=== PATIENT | male | born 1960 | race Caucasian/White ===

== ENCOUNTER 2016-05-16 11:23 | Inpatient (IN) | payer OTHER, BC ==
[~2016-05-16] VITALS: Ht 177.8 cm; Wt 125.9 kg
[2016-05-16] MEDS ORDERED: PROMETHAZINE HCL INJ 12.5 MG in SODIUM CHLORIDE 0.9% 50ML 50 ML IV PRN (12:30)
[2016-05-16] MEDS ORDERED: ACETAMINOPHEN 325 MG TAB PO PRN (12:30)
[2016-05-16] MEDS ORDERED: ONDANSETRON INJ 2 MG/ML 2 ML VIAL IV PRN (12:30)
[2016-05-16] MEDS ORDERED: LORAZEPAM INJ 1 MG in SYRINGE 0 ML IV PRN (12:30)
[2016-05-16] MEDS ORDERED: LORAZEPAM 1 MG TAB PO PRN (12:30)
[2016-05-16 12:44] VITALS: BP 168/95; PULSE 90; TEMP 36.7; Ht 177.8 cm; Wt 125.9 kg
--- NOTE | 2016-05-16 13:05 | HISTORY & PHYSICAL EXAMINATION ---
DATE OF ADMISSION: 05/16/2016 CHIEF COMPLAINT: Neck pain and left shoulder pain. SUBJECTIVE EXAMINATION: Rojelio is a 55-year-old who presented to our office for evaluation of his neck pain and left shoulder pain that began last September when he had a traumatic injury at work where he was struck by a piece of machinery and at that point, he had had neck pain. He has been evaluated and treated conservatively with prednisone and physical therapy with no relief. He has been seen and evaluated. MRI was obtained. He denies any true radicular pain down his arms, numbness or tingling or weakness of his upper extremities. Pain in his scapular region and shoulder region are his major complaints. He has no difficulty walking. No loss of balance, referred to us for an evaluation. PAST SURGICAL HISTORY: None reported. FAMILY HISTORY: Cancer. SURGICAL HISTORY: None reported. SOCIAL HISTORY: He is employed and . Former alcohol user. Former tobacco user and nondrug user. 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 CURRENT MEDICATIONS: None. ALLERGIES: TO VICODIN. REVIEW OF SYSTEMS: The patient denies any chills, fatigue, fever, night sweats or weakness. He denies any chest pain, heart murmur, irregular heartbeat or fainting. He denies any coughing, shortness of breath, recent infections or wheezing. He denies any abdominal pain, heartburn, nausea or vomiting. OBJECTIVE EXAMINATION: GENERAL APPEARANCE: A 55-year-old, alert and oriented, in no distress. CUTANEOUS CERVICAL: No dimplings, retractions, deformities, scarrings, or markings. CERVICAL EXAMINATION: The patient has painful range of motion of his neck with flexion and extension. He has had difficulty with shoulder elevations. No weakness with biceps flexion, triceps extension, wrist flexion and extension, finger abduction and ulnar deviation. Reflexes are +2 bilaterally symmetric. Sensation is intact to all dermatomal patterns. DIAGNOSTIC STUDIES: MRI demonstrates a large C6-C7 disc herniation with spinal cord compression. IMPRESSION: Cervical disc herniation. PLAN OF CARE: After discussion with the patient due to the level of spinal cord compromise, I have elected to admit this patient and place him on bed rest. I am going to discuss this patient with Dr. Vyas. The potential treatment options to include an ACDF at C6-C7. This procedure was reviewed with the patient in detail to include risks, benefits and outcomes. He conveyed an understanding to this and further treatment plans will be decided upon during his admission.
[2016-05-16 13:15] VITALS: O2SAT 97
[2016-05-16 13:17] LABS: BASO % 0.3 %; BASO ABS # 0.02 K/uL (0-0.2); COMPLETE YES; EOS % 1.5 %; HEMATOCRIT 39.2 % (42-52); IG% 0.1 %; LYMPH % 26.2 %; LYMPH ABS # 1.88 K/uL (1.2-3.4); MEAN CELL VOLUME 86.2 fL (80-100); MEAN CORPUSCULAR HEMOGLOBIN 32.1 pg (25-34); MEAN CORPUSCULAR HGB CONC 37.2 g/dl (32-36); MONO % 5.7 %; NEUT % 66.2 %; PLATELET COUNT 189 K/uL (130-400); RED BLOOD COUNT 4.55 M/uL (4.7-6.1); WHITE BLOOD COUNT 7.18 K/uL (4.8-10.8)
[2016-05-16 13:50] LABS: BUN/CREATININE RATIO 12.3 (10-20); CALCIUM 9.2 mg/dl (8.5-10.1); CREATININE 1.2 mg/dl (0.60-1.40); POTASSIUM 3.9 mmol/L (3.5-5.1)
--- NOTE | 2016-05-16 13:59 | DIAGNOSTIC IMAGING REPORT ---
CHEST 2 VIEWS ROUTINE CLINICAL HISTORY: Preoperative chest COMPARISON STUDY: No previous studies for comparison. FINDINGS: The heart is at the upper limits of normal in size. There is no failure. There is no focal pulmonary consolidation. There are no pleural effusions.[ IMPRESSION: No active disease in the chest. Electronically signed by: Flash Antunez M.D. 05/16/2016 1:57 PM Dictated Date/Time: 05/16/2016 1:56 PM
[2016-05-16] MEDS: OXYCODONE/ACETAMINOPHEN 5-325 TAB PO PRN ×2 (14:20→21:39)
[2016-05-16] MEDS: DEXAMETHASONE INJ 8 MG in SYRINGE 0 ML IV SCH ×2 (14:32→21:39)
[2016-05-16 14:38] LABS: URINE APPEARANCE CLEAR (CLEAR); URINE BILIRUBIN NEG (NEG); URINE COLOR YELLOW; URINE EPITHELIAL CELL AUTO 0-5 /lpf (0-5); URINE NITRITE NEG (NEG); URINE SPECIFIC GRAVITY 1.006 (1.000-1.030); UROBILINOGEN NEG (NEG)
[2016-05-16 14:43] LABS: MANUAL MICROSCOPIC REQUIRED? NO; REVIEW REQ? NO
[2016-05-16] MEDS ORDERED: IV FLUIDS COMPLETED PRN (15:15)
--- NOTE | 2016-05-16 18:56 | Progress Note ---
Progress Note 55 year old M with cord compression seen on MRI scheduled for C6/7 ACDF with spinal cord monitoring. Patient has been treated conservatively with steroids for several months. Aside from obesity, previous smoking, and probable MIKE, he has no known medical history. He has been hypertensive during this visit, but the patient said his BP usually is much lower and has been running higher since his treatment with steroids. Airway exam reveals a thick neck and slightly limited extension but is not presumed to be difficult to intubate. Remainder of cardiopulmonary exam is unremarkable. Labs and studies were reviewed and are acceptable to proceed with surgery as planned. Plan for General Anesthesia with ETT. Risks and benefits were discussed with patient and all questions were answered. He consents to the proposed anesthetic plan.
[2016-05-16 23:20] VITALS: BP 127/80; PULSE 91; TEMP 36.5; O2SAT 96
[2016-05-17] VITALS (15 sets, daily range): BP systolic 131–179; BP diastolic 78–102; PULSE 74–103; TEMP 36.5–37.2; O2SAT 94–97
[2016-05-17] MEDS: DEXAMETHASONE INJ 8 MG in SYRINGE 0 ML IV SCH (05:46)
[2016-05-17] MEDS ORDERED: CEFAZOLIN 3000 MG/65 ML D5W IV SCH (06:00)
[2016-05-17] MEDS ORDERED: REMIFENTANIL 1 MG VIAL IV ONE ×3 (06:51→08:55)
[2016-05-17] MEDS ORDERED: PROPOFOL IV EMULSION 10 MG/ML 100 ML VIAL IV ONE ×2 (06:51→08:55)
[2016-05-17] MEDS ORDERED: DEXAMETHASONE SOD INJ 4 MG/ML VIAL ONE (07:22)
[2016-05-17] MEDS ORDERED: SUCCINYLCHOLINE CHLORIDE 20 MG/ML 10 ML VIAL IV ONE (07:22)
[2016-05-17] MEDS ORDERED: ROCURONIUM BROMIDE 10 MG/ML 5 ML VIAL ONE (07:22)
[2016-05-17] MEDS ORDERED: PROPOFOL IV EMULSION 10 MG/ML 20 ML VIAL IV ONE (07:22)
[2016-05-17] MEDS ORDERED: MIDAZOLAM HCL 1 MG/ML 2ML VIAL ONE (07:23)
[2016-05-17] MEDS ORDERED: FENTANYL CITRATE INJ 50 MCG/1 ML 2 ML VIAL ONE ×2 (07:23→08:17)
[2016-05-17] MEDS ORDERED: LACTATED RINGER'S 1000ML 1,000 ML IV PRN (07:29)
[2016-05-17] MEDS ORDERED: MoRPHine SULFATE 10 MG/ML CARP/VIAL IV PRN (07:30)
[2016-05-17] MEDS ORDERED: DiphenhydrAMINE HCL 50 MG/ML VIAL IV PRN (07:30)
[2016-05-17] MEDS ORDERED: ONDANSETRON INJ 2 MG/ML 2 ML VIAL IV PRN ×2 (07:30→09:30)
[2016-05-17] MEDS ORDERED: METOCLOPRAMIDE HCL INJ 5 MG/ML 2 ML VIAL IV PRN (07:30)
[2016-05-17] MEDS ORDERED: NURSING VERBAL MED ORDER ONE ×3 (07:30→12:45)
--- NOTE | 2016-05-17 07:37 | History & Physical Bridge Note ---
H&P Re-Evaluation Bridge Note: I have examined the patient, reviewed the History & Physical and in the interval since the performance of the History & Physical I have noted the following changes of clinical significance: No changes noted
[2016-05-17] MEDS ORDERED: ONDANSETRON INJ 2 MG/ML 2 ML VIAL ONE (08:46)
[2016-05-17] MEDS ORDERED: LARYING-O-JET KIT (LTA) EXT ONE ×2 (08:46)
[2016-05-17] MEDS ORDERED: BACITRACIN 50000 UNIT VIAL IR ONE (09:25)
[2016-05-17] MEDS ORDERED: FLOSEAL HEMOSTATIC MATRIX 5ML TOP ONE (09:25)
--- NOTE | 2016-05-17 09:26 | [facility] Post Operative Brief Note ---
Immediate Operative Summary Operative Date May 17, 2016. Pre-Operative Diagnosis Cervical disc herniation Post-Operative Diagnosis Same as preoperative diagnosis Procedure(s) Performed C6-C7 Anterior Cervical Fusion * Spinal cord monitoring * Surgeon Dr. Jl Vyas Job Training Supervisor Surgeon(s) Phillip Avendano PA-C Estimated Blood Loss 30cc Findings dict Specimens No pathology specimens per surgeon
[2016-05-17] MEDS ORDERED: THROMBIN 5000 UNITS KIT TOP ONE (09:27)
[2016-05-17] MEDS ORDERED: ACETAMINOPHEN IV 100 ML IV PRN (09:30)
[2016-05-17] MEDS ORDERED: NALOXONE HCL 0.4 MG/1 ML VIAL/CARP IV PRN (09:30)
[2016-05-17] MEDS ORDERED: LORAZEPAM 0.5 MG TAB PO PRN (09:30)
[2016-05-17] MEDS ORDERED: DEXAMETHASONE INJ 8 MG in SYRINGE 0 ML IV PRN (09:30)
[2016-05-17] MEDS ORDERED: LORAZEPAM INJ 0.5 MG in SYRINGE 0.75 ML IV PRN (09:30)
[2016-05-17] MEDS ORDERED: OXYCODONE HCL IR 5 MG TAB (IMMEDIATE RELEASE) PO PRN (09:30)
[2016-05-17] MEDS ORDERED: RACEPINEPHRINE 2.25% NEBU SOLN 0.5 ML VIAL INH PRN (09:30)
[2016-05-17] MEDS ORDERED: OXYC-57 PO (09:39)
--- NOTE | 2016-05-17 09:40 | Discharge Instructions ---
Discharge Instructions Admission Reason for Admission: Cervical Myelopathy Discharge Discharge Diagnosis / Problem: cervical disc herniation Discharge Goals Goal(s): Decrease discomfort, Improve function, Increase independence Activity Recommendations Activity Limitations: as noted below Lifting Limitations: no more than 5 pounds Exercise/Sports Limitations: none May Resume Sexual Activity: after follow-up appointment Shower/Bathe: may shower/bathe in 3 days . Instructions / Follow-Up Instructions / Follow-Up ACTIVITY RECOMMENDATIONS: SELF CARE INSTRUCTIONS AFTER CERVICAL FUSIONS 1. No smoking. Smoking drastically decreases the chance of a solid fusion. 2. No bending, lifting more than 5 pounds, or twisting (roll like a log when turning in bed). 3. You may shower 3 days after surgery. Thoroughly dry wound. Do not soak in the tub. 4. Cervical collar: Must be worn at all times including sleeping. You may remove the brace only to bath, eat and if you are sitting in a recliner. 5. Please walk as much as you can for exercise. Gradually increase the distance that you walk as your endurance increases. SPECIAL CARE INSTRUCTIONS: VERY IMPORTANT TO READ AND REVIEW A. Do not take any anti-inflammatory medications (i.e. Indocin, Advil, Aspirin, Naprosyn, Aleve, Motrin, etc.) as these may inhibit the chance of a solid fusion. Tylenol is okay to take. B. Your surgical incision has been closed with a cosmetic suture under the skin that will dissolve in about 6 weeks. In 14 days, you can use a pair of clean scissors and cut the suture that is left outside of the skin at the ends of your incision. C. Complications are uncommon, but please contact us if you have any signs or symptoms of: 1. wound infection (fever higher than 102.5 degrees F, redness, separation of wound, drainage, or increasing pain from the incision) 2. blood clots in legs (pain, swelling, redness and warmth in legs) 3. urinary tract infection (fever higher than 102.5 degrees, burning upon urination or increased frequency of urination) 4. nerve problems (inability to walk on your toes or heels, numbness, loss of bowel or bladder control) 5. any other symptoms that concern you. D. Please call the office at if you have any concerns or questions about your operation or recovery. MANAGING PAIN AFTER SPINAL SURGERY 1. Narcotic medication is intended for short-term use and will be provided for surgical pain. Surgical pain usually lasts for a period of 4-6 weeks. Narcotic medication includes Percocet, Vicodin, Darvocet, Tylenol #3 or Lortab. 2. Longer-term pain is more appropriately treated with non-narcotic medication such as Tylenol ES. 3. Muscle spasm is not appropriately treated with narcotics. Muscle relaxers such as Soma, Flexeril or Skelaxin can be used along with Tylenol ES. 4. Remember that we all live with some "aches and pains". This is not unusual or uncommon after an injury or as we get older. 5. We will provide appropriate medication within the normal guidelines of their prescribed use. We will also be very cautious and aware of potential abuse and extended duration of patients' medication needs. 6. Please allow 2-3 days to process refills. Prescriptions will not be mailed but must be picked up at the office. FOLLOW UP VISIT: Keep your scheduled follow-up appointment. Any questions, please call the office at . Current Hospital Diet Patient's current hospital diet: Clear Liquid Diet Discharge Diet Recommended Diet: Regular Diet Procedures Procedures Performed: C6-C7 Anterior Cervical Fusion * Spinal cord monitoring * Pending Studies Studies pending at discharge: no Medical Emergencies . Who to Call and When: Medical Emergencies: If at any time you feel your situation is an emergency, please call 911 immediately. . Non-Emergent Contact Non-Emergency issues call your: Surgeon Call Non-Emergent contact if: temperature is above 101, your pain is not controlled, your pain is worsening, your pain is unusual for you, your pain is concerning you, wound has increased drainage, wound has increased redness, wound has increased pain, you have any medication questions . "Provider Documentation" section prepared by Phillip Avendano. VTE Core Measure Inpt VTE Proph given/why not?: Laila Londono
--- NOTE | 2016-05-17 09:55 | DIAGNOSTIC IMAGING REPORT ---
INTRAOPERATIVE CERVICAL SPINE 5 VIEWS CLINICAL HISTORY: Anterior cervical discectomy and fusion, C6-7. COMPARISON STUDY: No previous studies for comparison. FINDINGS: 13 seconds of fluoroscopic time was utilized. 5 fluoroscopic spot images are provided for interpretation. The lateral views are noninterpretable. On the final AP view, there appears to be evidence of a C6-7 cervical discectomy. Incidental note is made of a surgical drain and endotracheal tube. IMPRESSION: Intraoperative radiographs as described above. Electronically signed by: Flash Antunez M.D. 05/17/2016 9:53 AM Dictated Date/Time: 05/17/2016 9:52 AM
[2016-05-17] MEDS ORDERED: SCOPOLAMINE 1.5 MG TDSY TD SCH (10:00)
[2016-05-17] MEDS: FENTANYL CITRATE INJ 50 MCG/1 ML 2 ML VIAL IV PRN ×2 (10:02→10:08)
[2016-05-17] MEDS ORDERED: LABETALOL HCL IV 5 MG/ML 20ML ONE (10:17)
[2016-05-17] MEDS ORDERED: LABETALOL HCL IV 5 MG/ML 20ML IV PRN ×2 (10:45)
--- NOTE | 2016-05-17 11:00 | Anesthesiology Progress Note ---
Anesthesia Post Op Note Date & Time May 17, 2016 at 10:59 Vital Signs Pain Intensity: 4 Vital Signs Past 12 Hours Date Time Temp Pulse Resp B/P Pulse Ox O2 Delivery O2 Flow Rate FiO2 05/17/16 10:43 137/100 05/17/16 10:41 92 15 05/17/16 10:41 91 15 94 05/17/16 10:38 145/103 05/17/16 10:36 89 15 05/17/16 10:36 89 15 94 05/17/16 10:33 157/98 05/17/16 10:31 89 14 05/17/16 10:31 92 14 93 05/17/16 10:30 94 19 05/17/16 10:30 93 19 93 05/17/16 10:28 150/102 05/17/16 10:27 141/105 05/17/16 10:25 94 15 05/17/16 10:25 96 15 93 05/17/16 10:23 134/113 05/17/16 10:20 95 16 98 05/17/16 10:20 91 16 05/17/16 10:19 154/108 05/17/16 10:15 87 15 97 05/17/16 10:15 87 15 05/17/16 10:13 162/109 05/17/16 10:10 87 18 05/17/16 10:10 88 18 97 05/17/16 10:08 167/105 05/17/16 10:05 88 12 96 05/17/16 10:05 88 12 05/17/16 10:04 142/109 05/17/16 10:00 90 16 97 05/17/16 10:00 91 16 05/17/16 09:58 154/102 05/17/16 09:55 97 15 05/17/16 09:55 36.7 96 12 140/106 12 Mask 10 05/17/16 09:55 95 15 140/106 96 05/17/16 06:46 103 136/88 05/17/16 06:13 36.5 100 18 159/101 95 Room Air 05/16/16 23:40 Room Air 05/16/16 23:20 36.5 91 18 127/80 96 Room Air Notes Mental Status: alert / awake / arousable, participated in evaluation Pt Amnestic to Procedure: Yes Nausea / Vomiting: adequately controlled Pain: adequately controlled Airway Patency, RR, SpO2: stable & adequate BP & HR: stable & adequate Hydration State: stable & adequate Anesthetic Complications: no major complications apparent Pt doing well. DBP elevated as it was pre-op but now 140s/90s after labetalol.
[2016-05-17] MEDS ORDERED: SODIUM CHLORIDE 0.9% INJ 10 ML VIAL ONE (11:43)
[2016-05-17] MEDS: SODIUM CHLORIDE 0.9% 1000ML 1,000 ML IV SCH ×2 (11:55→22:33)
[2016-05-17] MEDS: HYDROmorphone INJ 1 MG/ML SYR IV PRN ×4 (12:20→22:42)
--- NOTE | 2016-05-17 13:27 | OPERATIVE REPORT ---
DATE OF OPERATION: 05/17/2016 PREOPERATIVE DIAGNOSES: 1. Cervical disc herniation C6-C7 -- massive. 2. Cervical myelopathy. POSTOPERATIVE DIAGNOSIS: Same. PROCEDURES: 1. Anterior cervical discectomy and fusion and application of PEEK intervertebral spacer with local autograft and DBM putty C6-C7. 2. Anterior cervical instrumentation, C6-C7 with LDR anterior cervical Blade plates. SURGEON: Dr. Vyas. GUEST RELATIONS COORDINATOR: Phillip Avendano PA-C. Please note he participated in all portions of the procedure and was critical for performance of the procedure, participated with positioning, prepping, draping, retraction and wound closure. ANESTHESIA: General endotracheal anesthesia. COMPLICATIONS: None. ESTIMATED BLOOD LOSS: Minimal. IV FLUIDS: Per anesthesia record. OPERATION AND FINDINGS: PROCEDURE: After identification of patient and operative level, he was brought to the OR where he underwent induction of general anesthesia. He was then positioned supine on [facility] OR table with Lamont horseshoe quality control head. Arms tucked at sides and well padded. Shoulders taped distally and anterior neck was sterilely prepped and draped in usual fashion. Antibiotics were administered. Time-out was performed. Level was confirmed and transverse skin incision was made on the right side of the neck at the level of the cricoid cartilage. I divided the platysma in line with the incision and performed routine anterior cervical exposure with blunt dissection medial to the carotid sheath. I identified the presumptive disc spaces, marked it with electrocautery and fluoroscopy and then mobilized the longus colli. I placed self-retaining cervical retractor deep to the longus colli, put [place] pins in the body of C6 and C7 and applied slight distraction across the pins. I then performed a complete discectomy at C6-C7, removed the complete disc, took down the posterior osteophytes of the posterior annulus and the PLL and did foraminotomies as necessary. There was a great deal of extruded disc material posterior to the vertebral body. I removed most of this in 2 large fragments. There appeared to be adequate decompression of the spinal cord return in normal morphology. I did swept proximally and distally behind the body of C6 and C7 with a proton micro ball tipped feeler and no further loose fragments could be identified. I then applied FloSeal for hemostasis and decorticated the endplates with a high speed wayne. I then determined graft size with trial sizers and inserted a PEEK cage filled with local bone and DBM putty. After insertion of the cage I removed the [place] pins, applied bone wax over the holes and inserted anterior cervical Blade plates into the body of C6 and C7 using the LDR system. I then removed the insertion handle, irrigated with bacitracin solution, applied FloSeal and confirmed hemostasis, placed a small round drain and closed in layered fashion. All sponge and needle counts were correct at the end of the case. I attest to the content of the Intraoperative Record and any orders documented therein. Any exceptio ns are noted below.
[2016-05-17] MEDS: CHECK SCOPOLAMINE PATCH PLACEMENT SCH (15:47)
[2016-05-17] MEDS: DEXAMETHASONE INJ 6 MG in SYRINGE 0 ML IV SCH (15:47)
[2016-05-17] MEDS: CEFAZOLIN IV 2,000 MG in DEXTROSE 5% 50ML 50 ML IV SCH (16:10)
[2016-05-18] VITALS (8 sets, daily range): BP systolic 131–153; BP diastolic 79–100; PULSE 76–88; TEMP 36.6–36.9; O2SAT 93–97
[2016-05-18] MEDS: CEFAZOLIN IV 2,000 MG in DEXTROSE 5% 50ML 50 ML IV SCH ×2 (00:27→08:14)
[2016-05-18] MEDS: DEXAMETHASONE INJ 6 MG in SYRINGE 0 ML IV SCH ×2 (00:27→08:14)
[2016-05-18] MEDS: CHECK SCOPOLAMINE PATCH PLACEMENT SCH ×2 (00:28→07:15)
[2016-05-18] MEDS: HYDROmorphone INJ 1 MG/ML SYR IV PRN ×2 (02:53→06:23)
--- NOTE | 2016-05-18 10:01 | Orthopedic Progress Note ---
Orthopedic Progress Note Date of Service May 18, 2016. Subjective Post OP Day: 1 Reports: feeling well, pain controlled w PO medications, Denies: SOB, calf pain , chest pain, complaints, light headedness, nausea / vomiting Additional Notes: Doing well w/ no issues. Objective calves soft nontender, N/V intact, capillary refill less than 2 sec., dressing C /D/I, incision C/D/I, A&O x3, toes mobile, hemovac drainage Date Time Temp Pulse Resp B/P Pulse Ox O2 Delivery O2 Flow Rate FiO2 05/18/16 09:18 36.6 84 16 93 Room Air 05/18/16 08:30 36.6 84 16 143/85 93 Room Air 05/18/16 08:09 82 16 97 Room Air 05/18/16 07:43 Room Air 05/18/16 06:30 36.6 80 16 151/83 95 Nasal Cannula 2.0 Humidified Oxygen 05/18/16 04:30 36.9 83 20 139/100 95 Nasal Cannula 2.0 Humidified Oxygen 05/18/16 04:00 82 16 95 Nasal Cannula 2.0 05/18/16 02:30 36.7 85 18 131/79 95 Nasal Cannula 2.0 Humidified Oxygen 05/18/16 00:30 36.6 76 18 153/96 94 Nasal Cannula 2.0 Humidified Oxygen 05/18/16 00:30 Nasal Cannula 2.0 Humidified Oxygen 05/18/16 00:30 88 16 95 Nasal Cannula 2.0 05/17/16 22:34 36.9 96 18 131/91 94 Nasal Cannula 2.0 Humidified Oxygen 05/17/16 20:30 37.2 74 18 165/78 94 Nasal Cannula 2.0 Humidified Oxygen 05/17/16 20:15 88 16 97 Nasal Cannula 2.0 05/17/16 18:34 36.9 86 16 164/96 94 Nasal Cannula 2.0 Humidified Oxygen 05/17/16 16:30 37.1 93 18 156/87 95 Nasal Cannula 2.0 Humidified Oxygen 05/17/16 16:01 95 16 97 Nasal Cannula 2.0 05/17/16 14:35 36.9 100 18 166/90 95 Nasal Cannula 2.0 Humidified Oxygen 05/17/16 13:29 36.8 92 16 152/83 95 Nasal Cannula 2.0 Humidified Oxygen 05/17/16 12:45 164/101 05/17/16 12:30 36.8 89 18 179/102 94 Nasal Cannula 2.0 Humidified Oxygen 05/17/16 12:00 36.7 81 16 147/90 96 Nasal Cannula 2.0 Humidified Oxygen 05/17/16 11:45 84 16 97 Nasal Cannula 2.0 05/17/16 11:30 94 Nasal Cannula 2.0 05/17/16 11:30 94 Nasal Cannula 2.0 Humidified Oxygen 05/17/16 11:30 36.7 85 18 151/98 94 Nasal Cannula 2.0 Humidified Oxygen 05/17/16 11:21 37.1 05/17/16 11:14 85 16 139/94 94 05/17/16 11:14 84 16 05/17/16 11:11 135/94 05/17/16 11:09 86 16 05/17/16 11:09 86 16 94 05/17/16 11:08 154/103 05/17/16 11:07 134/105 05/17/16 11:05 86 17 141/105 95 05/17/16 11:05 86 17 05/17/16 11:03 138/102 05/17/16 11:00 90 16 94 05/17/16 11:00 91 16 05/17/16 10:59 93 19 05/17/16 10:59 91 19 94 05/17/16 10:58 148/95 05/17/16 10:54 89 15 146/93 95 05/17/16 10:54 88 15 05/17/16 10:49 87 18 94 05/17/16 10:49 90 18 05/17/16 10:48 146/96 05/17/16 10:44 89 15 93 05/17/16 10:44 90 15 05/17/16 10:43 137/100 05/17/16 10:41 92 15 05/17/16 10:41 91 15 94 05/17/16 10:38 145/103 05/17/16 10:36 89 15 05/17/16 10:36 89 15 94 05/17/16 10:33 157/98 05/17/16 10:31 89 14 05/17/16 10:31 92 14 93 05/17/16 10:30 94 19 05/17/16 10:30 93 19 93 05/17/16 10:28 150/102 05/17/16 10:27 141/105 05/17/16 10:25 94 15 05/17/16 10:25 96 15 93 05/17/16 10:23 134/113 05/17/16 10:20 95 16 98 05/17/16 10:20 91 16 05/17/16 10:19 154/108 05/17/16 10:15 87 15 97 05/17/16 10:15 87 15 05/17/16 10:13 162/109 05/17/16 10:10 87 18 05/17/16 10:10 88 18 97 05/17/16 10:08 167/105 05/17/16 10:05 88 12 96 05/17/16 10:05 88 12 05/17/16 10:04 142/109 Assessment & Plan Assessment: s/p cervical decomp/fusion Plan: DIscharge home today
--- NOTE | 2016-05-18 10:19 | Anesthesiology Progress Note ---
Anesthesia Post Op Note Date & Time May 18, 2016 at 10:17 Vital Signs Pain Intensity: 5.0 Vital Signs Past 12 Hours Date Time Temp Pulse Resp B/P Pulse Ox O2 Delivery O2 Flow Rate FiO2 05/18/16 09:18 36.6 84 16 93 Room Air 05/18/16 08:30 36.6 84 16 143/85 93 Room Air 05/18/16 08:09 82 16 97 Room Air 05/18/16 07:43 Room Air 05/18/16 06:30 36.6 80 16 151/83 95 Nasal Cannula 2.0 Humidified Oxygen 05/18/16 04:30 36.9 83 20 139/100 95 Nasal Cannula 2.0 Humidified Oxygen 05/18/16 04:00 82 16 95 Nasal Cannula 2.0 05/18/16 02:30 36.7 85 18 131/79 95 Nasal Cannula 2.0 Humidified Oxygen 05/18/16 00:30 36.6 76 18 153/96 94 Nasal Cannula 2.0 Humidified Oxygen 05/18/16 00:30 Nasal Cannula 2.0 Humidified Oxygen 05/18/16 00:30 88 16 95 Nasal Cannula 2.0 05/17/16 22:34 36.9 96 18 131/91 94 Nasal Cannula 2.0 Humidified Oxygen Notes Mental Status: alert / awake / arousable, participated in evaluation Pt Amnestic to Procedure: Yes Nausea / Vomiting: adequately controlled Pain: adequately controlled Airway Patency, RR, SpO2: stable & adequate BP & HR: stable & adequate Hydration State: stable & adequate Anesthetic Complications: no major complications apparent
--- NOTE | 2016-05-18 10:27 | DISCHARGE SUMMARY ---
PRINCIPAL DIAGNOSIS: Includes cervical disc herniation C6-C7. POSTOPERATIVE DIAGNOSIS: Remains the same. PROCEDURE: ACDF C6-C7. SURGEON: Dr. Jl Vyas. BODY TECHNICIAN/PAINTER: Phillip Avendano PA-C. HISTORY OF PRESENT ILLNESS: Please refer to EMR. HOSPITAL COURSE: On 05/17/2016 Mr. Rodriguez was admitted to [facility] after diagnosis of massive disc herniation. He was seen and evaluated by Dr. Vyas on the morning of 05/17/2016 and indicated for definitive management. He was transported to the operating room, introduced with general endotracheal anesthesia, sterile conditions were set and he successfully underwent an ACDF of C6-C7 without complication or issue. He was awakened in stable and satisfactory condition and transported to postoperative recovery in cervical immobilization. Vital signs and pain were monitored and managed. The patient was then taken to the orthopedic floor for continued care. Throughout his stay, he noted resolution of preoperative symptoms. He had no difficulty swallowing or breathing. Vital signs and pain were monitored and properly managed. There were no surgical issues or complications. He was evaluated on the morning of 05/18/2016 and indicated for return home. On this date he was discharged from [facility]. DISPOSITION: Home. DISPOSITION CONDITION: Stable. NOTED COMPLICATIONS OR ISSUES: Zero. DISCHARGE INSTRUCTIONS: Please refer to EMR.
== END 2016-05-18 10:09 | disposition home or self-care (01) | DRG 473 ==
LOC: ENRESERVDT → ENRESERVTM → C.MSN 12:06 → OBSVTOIN 05-17 09:28 → C.3E 05-17 11:45
PROVIDERS: ADMIT Orthopaedic Surgery Orthopaedic Surgery of the Spine; ATTEND Orthopaedic Surgery Orthopaedic Surgery of the Spine
PROC: 0RG10A0 Fusion of Cervical Vertebral Joint with Interbody Fusion Device, Anterior Approach, Anterior Column, Open Approach (ICD-10-PCS; principal; 2016-05-17 07:30)
PROC: 0RT30ZZ Resection of Cervical Vertebral Disc, Open Approach (ICD-10-PCS; principal; 2016-05-17 07:30)
DX: M50.023 Cervical disc disorder at C6-C7 level with myelopathy (principal); G47.33 Obstructive sleep apnea (adult) (pediatric); M54.5 Low back pain; M54.6 Pain in thoracic spine; I10 Essential (primary) hypertension; E66.9 Obesity, unspecified; Z68.39 Body mass index [BMI] 39.0-39.9, adult; Z87.891 Personal history of nicotine dependence